=== PATIENT | male | born 1945 | race Caucasian/White ===

== ENCOUNTER 2016-02-29 18:37 | Emergency (ER) | payer SELFPAY ==
[2016-02-29 18:45] VITALS: BP 149/98
--- NOTE | 2016-02-29 19:08 | UC ---
UC General HPI - HPI Summary HPI Summary: Mild nausea, feels off, mild sore throat since yesterday. Has been taking 1000mg acetaminophen 4 times per day. Hasn't been sick in 3 years, wonders if there's anything he should be taking right now. No fever, trouble breathing, or acute pain. - History of Current Complaint Chief Complaint: UCRespiratory Stated Complaint: SORE THROAT Time Seen by Provider: 02/29/16 18:42 Hx Obtained From: Patient Onset/Duration: Gradual Onset, Lasting Days Timing: Constant Onset Severity: Mild Current Severity: Mild Associated Signs & Symptoms: Positive: Nausea - Allergy/Home Medications Allergies/Adverse Reactions: Allergies Allergy/AdvReac Type Severity Reaction Status Date / Time No Known Allergies Allergy Verified 02/29/16 18:45 Home Medications: Home Medications B-Complex Vitamins [Vitamin B Complex] 1 tab PO 02/29/16 [History] PMH/Surg Hx/FS Hx/Imm Hx Endocrine History Of: Denies: Diabetes, Thyroid Disease Cardiovascular History Of: Denies: Cardiac Disorders, Hypertension Respiratory History Of: Reports: Asthma - as a child Denies: COPD GI/ History Of: Denies: Ulcer - Surgical History Surgical History: None - Family History Known Family History: Positive: Hypertension - Social History Occupation: Retired Alcohol Use: None Substance Use Type: None Smoking Status (MU): Never Smoked Tobacco Review of Systems Constitutional: Fatigue Skin: Negative Eyes: Negative ENT: Negative Respiratory: Negative Cardiovascular: Negative Gastrointestinal: Other - nausea Genitourinary: Negative Motor: Negative Neurovascular: Negative Musculoskeletal: Negative Neurological: Negative Psychological: Negative All Other Systems Reviewed And Are Negative: Yes Physical Exam Triage Information Reviewed: Yes Appearance: Well-Appearing, No Pain Distress, Well-Nourished Vital Signs: Initial Vital Signs Temp 97.6 F 02/29/16 18:41 Pulse 91 02/29/16 18:41 Resp 18 02/29/16 18:41 BP 149/98 02/29/16 18:41 Pulse Ox 98 02/29/16 18:41 Vital Signs Reviewed: Yes Eye Exam: Normal Eyes: Positive: Conjunctiva Clear ENT Exam: Normal ENT: Positive: Normal ENT inspection, Hearing grossly normal, Pharynx normal, TMs normal Dental Exam: Normal Neck exam: Normal Neck: Positive: Supple, Nontender, No Lymphadenopathy Respiratory Exam: Normal Respiratory: Positive: Chest non-tender, Lungs clear, Normal breath sounds, No respiratory distress, No accessory muscle use Cardiovascular Exam: Normal Cardiovascular: Positive: RRR, No Murmur Abdominal Exam: Normal Abdomen Description: Negative: CVA Tenderness (R), CVA Tenderness (L) Musculoskeletal Exam: Normal Neurological Exam: Normal Psychological Exam: Normal Skin Exam: Normal Course/Dx - Differential Dx - Multi-Symptom Provider Diagnoses: viral syndrome Discharge - Discharge Plan Condition: Stable Disposition: HOME Patient Education Materials: Viral Syndrome (ED) Additional Instructions: For nausea, I recommend using louisa chews or louisa clementine/tea. You should also stick with bland food and only very small amounts of food and drink. If you develop vomiting, diphenhydramine (benadryl) can help. Try not to take more than 3000mg of acetaminophen per day. Rest as much as possible. You should return here if you have trouble breathing or if you have fever longer than 3 days.
== END 2016-02-29 19:10 | disposition home or self-care (01) ==
LOC: UCEAST 18:37
DX: B34.9 Viral infection, unspecified (principal)
CPT/HCPCS: 99201; G0463